=== PATIENT | female | born 1945 | race African-American/Black ===

== ENCOUNTER 2019-11-12 12:07 | Emergency (ER) | payer OTHER ==
--- NOTE | 2019-11-12 12:24 | PDOC ---
Rapid Medical Evaluation Time Seen by Provider: 11/12/19 12:22 Medical Evaluation: Allergies Allergy/AdvReac Type Severity Reaction Status Date / Time No Known Drug Allergies Allergy Verified 11/12/19 12:21 11/12/19 12:23 CC: chest tightness intermittently x months but worsening over the past week with palpitations, denies sob, leg swelling exam: vss, nsr Plan: labs, school lunch monitor Discharge Disposition - Diagnosis Palpitations - Referrals - Patient Instructions - Post Discharge Activity
[2019-11-12 12:26] VITALS: TEMP 98.3; BMI 32.5
--- NOTE | 2019-11-12 12:36 | PDOC ---
History of Present Illness - General Chief Complaint: Palpitations Stated Complaint: PALPITATIONS Time Seen by Provider: 11/12/19 12:22 History Source: Patient Exam Limitations: No Limitations - History of Present Illness Initial Comments: 11/12/19 12:36 74yF w PMHx iron deficiency anemia, obesity, GERD presenting w 4wk midsternal chest discomfort and palpitations exacerbated with bending over/standing up/after meals. Not exertional. Came in today because symptoms not relieved w omeprazole. Was worked up years ago for similar symptoms w neg workup. Denies smoking/fam cardiac hx. Denies fever, n/v, cough, SOB, ABD pain, urinary/bowel mvmt changes, leg swelling. Past History - Medical History Allergies/Adverse Reactions: Allergies Allergy/AdvReac Type Severity Reaction Status Date / Time No Known Drug Allergies Allergy Verified 11/12/19 12:21 Home Medications: Ambulatory Orders Omeprazole Magnesium [Prilosec (OTC)] 20 mg PO DAILY 02/20/12 Alfonzo/D3/Mag11/Zinc/Associate Director Of Development/Indra/Bor [Caltrate 600+D Plus Tablet] 1 each PO DAILY 09/16/14 Naproxen Sodium [Aleve] 440 mg PO BID PRN 09/16/14 Silodosin [Rapaflo] 4 mg PO DAILY 09/16/14 Oxycodone HCl/Acetaminophen [Percocet 5/325 -] 1 - 2 tab PO Q4H #30 tablet 09/18/14 Asthma: Yes COPD: No GI Disorders: Yes (ACID REFLUX) Other medical history: Osteo art, - Surgical History Orthopedic Surgery: Yes (RIGHT CTR,RIGHT TKR,LEFT ANKLE FUSION) - Psycho-Social/Smoking History Smoking Status: No Smoking History: Never smoked Have you smoked in the past 12 months: No Number of Cigarettes Smoked Daily: 0 - Substance Abuse Hx (Audit-C & DAST Scrn) How often the patient has a drink containing alcohol: Never Score: In Men: 4 or > Positive; In Women: 3 or > Positive: 0 Screen Result (Pos requires Nsg. Audit-10AR): Negative In the last yr the pt used illegal drug/Rx for NonMed reason: No Score: Yes response is considered Positive: 0 Screen Result (Positive result requires Nsg. DAST-10): Negative Review of Systems - Review of Systems Constitutional: No: Chills, Fever HEENTM: No: Eye Pain, Nose Congestion Respiratory: No: Cough, Shortness of Breath Cardiac (ROS): Yes: Palpitations. No: Chest Pain ABD/GI: No: Abdominal Distended, Constipated, Diarrhea, Nausea, Vomiting : No: Burning, Dysuria Musculoskeletal: No: Back Pain, Joint Pain Integumentary: No: Bruising, Flushing Neurological: No: Headache, Seizure Psychiatric: No: Anxiety, Depression Endocrine: No: Intolerance to Cold, Intolerance to Heat Hematologic/Lymphatic: No: Anemia, Blood Clots *Physical Exam - Vital Signs Last Vital Signs Temp Pulse Resp BP Pulse Ox 98.3 F 85 16 122/65 99 11/12/19 12:21 11/12/19 12:21 11/12/19 12:21 11/12/19 12:21 11/12/19 12:21 - Physical Exam General Appearance: Yes: Nourished, Appropriately Dressed. No: Apparent Distress HEENT: positive: EOMI, JULIÁN, Normal Voice. negative: Scleral Icterus (R), Scleral Icterus (L) Respiratory/Chest: positive: Lungs Clear, Normal Breath Sounds. negative: Chest Tender, Respiratory Distress, Crackles, Rales, Rhonchi, Stridor, Wheezing Cardiovascular: positive: Regular Rhythm, Regular Rate, S1, S2. negative: Edema, Murmur Gastrointestinal/Abdominal: positive: Normal Bowel Sounds, Flat, Soft. negative: Tender, Organomegaly Extremity: negative: Pedal Edema Integumentary: positive: Normal Color, Warm Neurologic: positive: Fully Oriented, Alert, Normal Mood/Affect, Normal Response, Responsive. negative: Confused, Disoriented Heart Score/ECG Review - History History: Slightly suspicious - Electrocardiogram EKG: Normal - Age Age: >/= 65 - Risk Factors Risk Factors Heart Score: No Hx Hypercholesterolemia, No Hx Hypertension, No Hx Diabetes, No Smoking History, No Positive family hx of cardiac disease, Yes Hx Obesity Based on the list above the patient has:: 1-2 risk factors - Troponin Troponin: </= normal limit - Score Heart Score - Total: 3 ED Treatment Course - LABORATORY CBC & Chemistry Diagram: 11/12/19 12:53 11/12/19 12:53 - RADIOLOGY Radiology Studies Ordered: Category Date Time Status CHEST PA & LAT [RAD] Stat Radiology 11/12/19 12:36 Ordered Medical Decision Making - Medical Decision Making 11/12/19 12:55 EKG - NSR, HR 85, QTc 447, no ST changes CXR - clear lung suh, normal cardiac size WBC 3.5 leukopenic baseline --- 74yF w PMHx iron deficiency anemia, obesity, GERD presenting w 4wk positional/meal-related midsternal chest discomfort and palpitations. Likely GERD. Low concern for ACS (few risk factors, neg trop, HEART 3) vs PNA (clear lungs) vs thyroid (wnl). WBC 3.5 leukopenic baseline Given pepcid, maalox, 1L NS w relief. DC w PCP f/u, cards referral Discharge - Discharge Information Problems reviewed: Yes Clinical Impression/Diagnosis: Palpitations GERD (gastroesophageal reflux disease) Qualifiers: Esophagitis presence: without esophagitis Qualified Code(s): K21.9 - Gastro- esophageal reflux disease without esophagitis Condition: Improved - Follow up/Referral Referrals: Elfego Navarro MD [Primary Care Provider] - Abraham Chaudhry MD [Staff Physician] - - Patient Discharge Instructions Patient Printed Discharge Instructions: DI for Gastroesophageal Reflux Disease (GERD) Additional Instructions: Your workup did not show anything concerning Take your home Prilosec every day until you see your doctor Please follow up with your primary care doctor appointment next Monday. Please see the referred heart Dr Chaudhry. - Post Discharge Activity
[2019-11-12] MEDS ORDERED: SODIUM CHLORIDE 0.9% 500 ML INFUS.BAG IV ONE (12:51)
[2019-11-12] MEDS ORDERED: FAMOTIDINE 20 MG/50 ML IVPB 20 MG/50 ML MG IVPB ONE (12:51)
[2019-11-12] MEDS ORDERED: MAG HYDROX/AL HYDROX/SIMETH -MYLANTA- ORAL SUSPENSION PO ONE (12:51)
[2019-11-12] MEDS ORDERED: MAG HYDROX/AL HYDROX/SIMETH 30 ML UNIT-DOSE CUP ONE (12:53)
[2019-11-12 13:09] LABS: EOS % 4.1 % (0-4.5); HEMATOCRIT 40.8 % (32.4-45.2); HEMOGLOBIN 12.8 GM/dL (10.7-15.3); LYMPH % 39.3 % (8-40); MCH 23.8 pg (25.7-33.7); MCHC 31.4 g/dl (32.0-36.0); MEAN CELL VOLUME 75.8 fl (80-96); MEAN PLT VOLUME 8.5 fl (7.5-11.1); MONO % 11.8 % (3.8-10.2); NEUT % 43.8 % (42.8-82.8); PLATELET COUNT 225 K/MM3 (134-434); RBC 5.39 M/mm3 (3.60-5.2); RDW 14.4 % (11.6-15.6); WHITE BLOOD COUNT 3.5 K/mm3 (4.0-10.0)
[2019-11-12 13:29] LABS: ALBUMIN 3.6 g/dl (3.4-5.0); ALK PHOS 98 U/L (45-117); ANION GAP 7 MMOL/L (8-16); BILIRUBIN,TOTAL 0.4 mg/dL (0.2-1); BLOOD UREA NITROGEN 12.5 mg/dL (7-18); CALCIUM 9.4 mg/dL (8.5-10.1); CHLORIDE 108 mmol/L (98-107); CO2 26 mmol/L (21-32); CREATININE 0.6 mg/dL (0.55-1.3); GLUCOSE,RANDOM 88 mg/dL (74-106); POTASSIUM 4.1 mmol/L (3.5-5.1); SGOT/AST 23 U/L (15-37); SGPT/ALT 27 U/L (13-61); SODIUM 141 mmol/L (136-145); TOT PROT 7.6 g/dl (6.4-8.2)
--- NOTE | 2019-11-12 14:04 | PDOC ---
Attending Attestation - Resident Resident Name: Juan Jose Raymond - ED Attending Attestation I have performed the following: I have examined & evaluated the patient, The case was reviewed & discussed with the resident, I agree w/resident's findings & plan - HPI HPI: 11/12/19 14:00 74y/o healthy F p/w fluttering sensation in her chest for the past week. no chest pain, no MAURICE, no f/c/cough. sxs occur randomly, last for seconds to minutes then resolve. Became more consistent over past 24h so presents for evaluation after speaking with Dr. Navarro. had holter many years ago, ? extra beats. - Physicial Exam PE: 11/12/19 14:01 vss well appearing and ambulatory in ED no jvd, no palpable neck mass s1s2 rrr without ectopy noted during exam ctab abd normal no calf ttp/edema - Medical Decision Making 11/12/19 14:02 74y/o F with palpitations intermittently for one week, no acs sxs of cp or sob. overall atypical cardiac presentation for acs, well appearing here with stable vital signs and no other red flags. ? ectopic beats, ? gerd labs wnl, including lytes and trop ekg normal sinus cxr clear check second trop otherwise, feels well. likely d/c plan to f/u with Dr. Navarro and cardiology 11/12/19 14:11 pt felt better and requested discharge. d/w dr. navarro, follow-up arranged. understands return criteria Heart Score/ECG Review #1 ECG reviewed & interpreted by me at: 12:11 General ECG Interpretation: Sinus Rhythm, Normal Rate (85), Normal Intervals (qtc 447), No acute ischemic changes Discharge - Discharge Information Problems reviewed: Yes Clinical Impression/Diagnosis: Palpitations GERD (gastroesophageal reflux disease) Qualifiers: Esophagitis presence: without esophagitis Qualified Code(s): K21.9 - Gastro- esophageal reflux disease without esophagitis Condition: Improved Disposition: HOME - Follow up/Referral Referrals: Elfego Navarro MD [Primary Care Provider] - Abraham Chaudhry MD [Staff Physician] - - Patient Discharge Instructions Patient Printed Discharge Instructions: DI for Gastroesophageal Reflux Disease (GERD) Additional Instructions: Your workup did not show anything concerning Take your home Prilosec every day until you see your doctor Please follow up with your primary care doctor appointment next Monday. Please see the referred heart Dr Chaudhry. - Post Discharge Activity
[2019-11-12 14:28] VITALS: BP 121/66; PULSE 79
--- NOTE | 2019-11-12 14:50 | EKG ---
Test Reason : Blood Pressure : / mmHG Vent. Rate : 085 BPM Atrial Rate : 085 BPM P-R Int : 140 ms QRS Dur : 082 ms QT Int : 376 ms P-R-T Axes : 070 062 044 degrees QTc Int : 447 ms NORMAL SINUS RHYTHM NORMAL ECG WHEN COMPARED WITH ECG OF 20-FEB-2012 08:57, NO SIGNIFICANT CHANGE WAS FOUND Confirmed by Curtis Singleton MD ([id number]) on 11/12/2019 2:50:16 PM Referred By: Confirmed By:Curtis Singleton MD
== END 2019-11-12 14:26 | disposition home or self-care (01) ==
LOC: JER 12:07
PROC: 3E033NZ Introduction of Analgesics, Hypnotics, Sedatives into Peripheral Vein, Percutaneous Approach (ICD-10-PCS; principal; 2019-11-12)
DX: R00.2 Palpitations (principal); K21.9 Gastro-esophageal reflux disease without esophagitis
CPT/HCPCS: 36415; 71046-TC-FY; 80053; 82550; 84443; 84484; 85025; 93005; 93010; 96365; 99285-25

== ENCOUNTER 2020-07-27 19:03 | Emergency (ER) | payer OTHER ==
[2020-07-27 19:26] VITALS: TEMP 98.3; BMI 30.4
[2020-07-27] MEDS ORDERED: LIDOCAINE PATCH REMOVAL MC SCH (22:00)
[2020-07-27] MEDS ORDERED: DEXAMETHASONE SOD PHOSPHATE 10 MG/1 ML VIAL IM ONE (22:29)
[2020-07-27] MEDS ORDERED: ACETAMINOPHEN 325 MG TABLET (FP) PO ONE (22:29)
[2020-07-27] MEDS ORDERED: LIDOCAINE 5% TOPICAL PATCH TP ONE (22:29)
[2020-07-27] MEDS ORDERED: ACETAMINOPHEN 325 MG TABLET (FP) ONE (22:46)
[2020-07-27] MEDS ORDERED: DEXAMETHASONE SOD PHOSPHATE 10 MG/1 ML VIAL ONE (22:46)
[2020-07-27] MEDS ORDERED: LIDOCAINE 5% TOPICAL PATCH ONE (22:47)
[2020-07-27 23:29] VITALS: BP 132/52; PULSE 75
== END 2020-07-28 00:20 | disposition home or self-care (01) ==
LOC: JER 19:03
PROC: 3E0233Z Introduction of Anti-inflammatory into Muscle, Percutaneous Approach (ICD-10-PCS; principal; 2020-07-27)
DX: M25.571 Pain in right ankle and joints of right foot (principal)
CPT/HCPCS: 73610-TC-RT-FY; 73630-TC-RT-FY; 93971-TC; 99284-25; J1100

== ENCOUNTER 2022-03-14 08:08 | Day surgery (SDC) | payer OTHER ==
[2022-03-08 15:29] VITALS: BMI 30.9
[~2022-03-14 08:08] MED LIST: TRANEXAMIC ACID 1000 MG/10 ML VIAL IVPUSH ONE
[2022-03-14] MEDS ORDERED: SUCCINYLCHOLINE CHLORIDE 200 MG/10 ML SYRINGE ONE (09:06)
[2022-03-14] MEDS ORDERED: MIDAZOLAM HCL 2 MG/2 ML SINGLE DOSE VIAL ONE ×2 (09:06→12:47)
[2022-03-14] MEDS ORDERED: PROPOFOL 40 ML ONE (09:06)
[2022-03-14] MEDS ORDERED: CEFAZOLIN 2 GM in DEXTROSE 5%-WATER - 50 ML IVPB ONE (09:30)
[2022-03-14] MEDS ORDERED: BUPIVACAINE LIPOSOME/PF (EXPAREL) 266 MG/20 ML VIAL ONE (12:47)
[2022-03-14] MEDS ORDERED: BUPIVACAINE HCL 50 ML ONE (12:48)
[2022-03-14] MEDS ORDERED: SODIUM CHLORIDE 0.9% P/F 10 ML VIAL IJ ONE (12:48)
[2022-03-14] MEDS ORDERED: ROCURONIUM BROMIDE 50 MG/5 ML SYRINGE ONE (13:26)
[2022-03-14] MEDS ORDERED: VANCOMYCIN 1,000 MG VIAL (RESTRICTED TO ID ONLY) ONE ×2 (13:33→13:40)
[2022-03-14] MEDS ORDERED: ceFAZolin SODIUM 1 GM VIAL ONE (13:37)
[2022-03-14] MEDS ORDERED: TRANEXAMIC ACID 1000 MG/10 ML VIAL ONE ×2 (13:37→15:29)
[2022-03-14] MEDS ORDERED: ONDANSETRON 4 MG/2 ML VIAL ONE (15:17)
[2022-03-14] MEDS ORDERED: NEOSTIGMINE METHYLSULFATE 0.5 MG/1 ML - 10 ML MDV ONE (15:21)
[2022-03-14] MEDS ORDERED: GLYCOPYRROLATE 0.2 MG/1 ML VIAL ONE (15:21)
[2022-03-14] MEDS ORDERED: BUPIVICAINE 0.25%/MORPH PF/KETOROLAC - 51ML DISP.SYRINGE IA ONE (15:26)
[2022-03-14] MEDS ORDERED: ACETAMINOPHEN INJECTION 100 ML IVPB ONE (15:42)
[2022-03-14] MEDS ORDERED: LIDOCAINE HCL/PF 2% SDV 5ML VIAL ONE (15:49)
[2022-03-14] MEDS ORDERED: PROPOFOL 20 ML ONE (16:03)
[2022-03-14] MEDS ORDERED: MAG HYDROX/AL HYDROX/SIMETH 30 ML UNIT-DOSE CUP PO PRN (16:24)
[2022-03-14] MEDS ORDERED: ONDANSETRON 4 MG/2 ML VIAL IVPUSH PRN ×2 (16:24→16:43)
[2022-03-14] MEDS ORDERED: ACETAMINOPHEN 1000 MG/100 ML BAG IVPB PRN (16:29)
[2022-03-14] MEDS ORDERED: LACTATED RINGERS SOLUTION 1,000 ML IV SCH ×2 (16:30→16:45)
[2022-03-14] MEDS ORDERED: oxyCODONE HCL 5 MG TABLET PO PRN ×3 (16:30→16:43)
[2022-03-14] MEDS ORDERED: PROMETHAZINE HCL 25 MG/1 ML VIAL IVPUSH PRN (16:43)
[2022-03-14] MEDS ORDERED: ACETAMINOPHEN 1000 MG/100 ML BAG IVPB ONE (16:43)
[2022-03-14] MEDS ORDERED: FENTANYL CITRATE/PF 50 MCG/ML VIAL ONE ×3 (16:46→17:07)
[2022-03-14] MEDS: KETOROLAC TROMETHAMINE 30 MG/1 ML VIAL IVPUSH SCH ×2 (19:04→23:36)
[2022-03-14] MEDS: ACETAMINOPHEN 500 MG TABLET (FP) PO SCH (22:00)
[2022-03-14] MEDS: GABAPENTIN 300 MG CAPSULE PO SCH (22:06)
[2022-03-14] MEDS: SENNOSIDES/DOCUSATE COMBO (SENNA PLUS) TABLET (UD) PO SCH (22:06)
[2022-03-14] MEDS: CEFAZOLIN SODIUM 2 GM in DEXTROSE 5%-WATER 100 ML IVPB SCH (22:07)
[2022-03-14] MEDS: oxyCODONE HCL 10 MG SUSTAINED ACTING TABLET PO SCH (22:07)
[2022-03-14] MEDS: METOPROLOL TARTRATE 25 MG TABLET (FP) PO SCH (23:38)
[2022-03-15] MEDS ORDERED: ACETAMINOPHEN INJECTION 100 ML IVPB ONE (00:36)
[2022-03-15] MEDS: ACETAMINOPHEN 500 MG TABLET (FP) PO SCH ×3 (04:00→15:33)
[2022-03-15] MEDS: CEFAZOLIN SODIUM 2 GM in DEXTROSE 5%-WATER 100 ML IVPB SCH ×2 (06:16→14:27)
[2022-03-15 08:26] LABS: HEMATOCRIT 28.3 % (32.4-45.2); HEMOGLOBIN 9.3 G/dL (10.7-15.3); MCH 24.6 pg (25.7-33.7); MCHC 32.8 g/dl (32.0-36.0); MEAN CELL VOLUME 74.9 fl (80-96); MEAN PLT VOLUME 9.5 fl (7.5-11.1); PLATELET COUNT 225.7 10^3/uL (134-434); RBC 3.78 10^6/uL (3.60-5.2); RDW 17.1 % (11.6-15.6); WHITE BLOOD COUNT 5.8 10^3/uL (4.0-10.8)
[2022-03-15 08:27] LABS: CALCIUM 8.3 mg/dl (8.5-10); CREATININE 0.6 mg/dl (0.55-1.3)
[2022-03-15] MEDS: GABAPENTIN 300 MG CAPSULE PO SCH (09:30)
[2022-03-15] MEDS: METOPROLOL TARTRATE 25 MG TABLET (FP) PO SCH (09:33)
[2022-03-15] MEDS: SENNOSIDES/DOCUSATE COMBO (SENNA PLUS) TABLET (UD) PO SCH (09:34)
[2022-03-15] MEDS: oxyCODONE HCL 10 MG SUSTAINED ACTING TABLET PO SCH (09:34)
[2022-03-15] MEDS ORDERED: SILODOSIN 4 MG PO SCH ×2 (10:00→16:45)
[2022-03-15] MEDS ORDERED: FOLIC ACID 1 MG TABLET (FP) PO SCH (10:00)
[2022-03-15] MEDS ORDERED: APIXABAN 2.5 MG TABLET PO SCH (10:00)
[2022-03-15] MEDS ORDERED: PANTOPRAZOLE 40 MG TABLET PO SCH (10:00)
[2022-03-15 14:02] VITALS: BP 107/70; PULSE 69; RESP 16; TEMP 98.2
[2022-03-16] MEDS ORDERED: APIXABAN 5 MG TABLET PO SCH (10:00)
== END 2022-03-15 16:40 | disposition home health service (06) ==
LOC: SUATTDRO 08:08 → FASUSAT 08:08 → FM/S 08:09 → UNDOADMIN 08:09 → FM/S 18:03 → UNDODISIN 03-15 16:40 → FASUSAT 03-15 16:40
PROC: 8E0Y0CZ Robotic Assisted Procedure of Lower Extremity, Open Approach (ICD-10-PCS; 2022-03-14)
PROC: 0SRD0J9 Replacement of Left Knee Joint with Synthetic Substitute, Cemented, Open Approach (ICD-10-PCS; principal; 2022-03-14 14:00)
DX: M17.12 Unilateral primary osteoarthritis, left knee (principal); I10 Essential (primary) hypertension; I48.91 Unspecified atrial fibrillation; D50.9 Iron deficiency anemia, unspecified; Z79.01 Long term (current) use of anticoagulants; E66.9 Obesity, unspecified; Z68.30 Body mass index [BMI] 30.0-30.9, adult
CPT/HCPCS: 20985; 27447; C1776; S2900; 36415; 73560-TC-LT-FY; 80048; 82728; 83540; 83550; 85027; 88305-TC; 88311-TC; 94760; 97010-GP; 97116-GP; 97162-GP; C1889

== ENCOUNTER 2024-02-16 04:04 | Day surgery (SDC) | payer OTHER ==
[2024-02-14 10:49] VITALS: BMI 31.2
[2024-02-16 06:21] VITALS: RESP 16
[2024-02-16] MEDS ORDERED: BUPIVACAINE HCL/PF 0.75% 10 ML VIAL ONE (07:18)
[2024-02-16] MEDS ORDERED: LIDOCAINE HCL/PF 1% SDV 5ML VIAL ONE (07:19)
[2024-02-16] MEDS: BUPIVACAINE HCL/PF 0.75% 10 ML VIAL NR ONE ×2 (08:27)
[2024-02-16] MEDS: LIDOCAINE HCL 1% PRESERVATIVE FREE - 30ML VIAL IJ ONE ×2 (08:27)
[2024-02-16 08:49] VITALS: BP 124/46; PULSE 60; TEMP 97.6
[2024-02-16] MEDS ORDERED: ACETAMINOPHEN 500 MG TABLET (FP) PO PRN (11:35)
== END 2024-02-16 10:02 | disposition home or self-care (01) ==
LOC: MERGE 04:04 → JASU-SURG 04:04
PROVIDERS: ATTEND Pain Medicine Pain Medicine
PROC: 3E0T3BZ Introduction of Anesthetic Agent into Peripheral Nerves and Plexi, Percutaneous Approach (ICD-10-PCS; principal; 2024-02-16 08:00)
DX: M47.816 Spondylosis without myelopathy or radiculopathy, lumbar region (principal)
CPT/HCPCS: 76000-TC-FY

== ENCOUNTER 2024-12-05 06:15 | Day surgery (SDC) | payer OTHER ==
[2024-12-03 12:53] VITALS: BMI 31.4
[2024-12-05] MEDS ORDERED: LIDOCAINE HCL/PF 1% SDV 5ML VIAL ONE (07:17)
[2024-12-05] MEDS ORDERED: TRIAMCINOLONE ACET 40MG/1ML VIAL ONE (07:17)
[2024-12-05] MEDS ORDERED: BUPIVACAINE HCL/PF 0.5% (5MG/ML) 10 ML VIAL ONE (07:17)
[2024-12-05] MEDS ORDERED: ACETAMINOPHEN 500 MG TABLET (FP) PO PRN (08:58)
[2024-12-05] MEDS: LIDOCAINE HCL 1% PRESERVATIVE FREE - 30ML VIAL IJ ONE ×2 (09:30)
[2024-12-05] MEDS: BUPIVACAINE HCL/PF 0.5% (5 MG/ML) 30 ML VIAL IJ ONE ×3 (09:30)
[2024-12-05] MEDS: TRIAMCINOLONE ACET 40MG/1ML VIAL IM ONE ×2 (09:30)
[2024-12-05] MEDS: IOHEXOL 180 MG/1 ML ML IJ ONE ×3 (09:30)
[2024-12-05 13:25] VITALS: BP 113/67; PULSE 56; RESP 18; TEMP 98
== END 2024-12-05 10:04 | disposition home or self-care (01) ==
LOC: JASU-SURG 06:15
PROVIDERS: ATTEND Pain Medicine Pain Medicine
PROC: 3E0U3BZ Introduction of Anesthetic Agent into Joints, Percutaneous Approach (ICD-10-PCS; 2024-12-05)
PROC: 3E0U33Z Introduction of Anti-inflammatory into Joints, Percutaneous Approach (ICD-10-PCS; principal; 2024-12-05 09:00)
DX: M53.3 Sacrococcygeal disorders, not elsewhere classified (principal)
CPT/HCPCS: 76000-TC-FY

== ENCOUNTER 2025-01-10 06:16 | Day surgery (SDC) | payer OTHER ==
[2025-01-08 12:05] VITALS: BMI 31.6
[2025-01-10] MEDS ORDERED: BUPIVACAINE HCL/PF 0.25% (2.5MG/ML) 10 ML VIAL ONE (07:36)
[2025-01-10] MEDS ORDERED: TRIAMCINOLONE ACET 40MG/1ML VIAL ONE (07:37)
[2025-01-10] MEDS ORDERED: LIDOCAINE HCL/PF 1% SDV 5ML VIAL ONE (07:37)
[2025-01-10] MEDS ORDERED: BUPIVACAINE HCL/PF 0.5% (5MG/ML) 10 ML VIAL ONE (07:37)
[2025-01-10 09:31] VITALS: RESP 18
[2025-01-10] MEDS: LIDOCAINE 1% P/F 10 MG/ML VIAL INF ONE ×2 (12:35)
[2025-01-10] MEDS: IOHEXOL 180 MG/1 ML ML IJ ONE ×2 (12:36)
[2025-01-10] MEDS: BUPIVACAINE HCL/PF 0.5% (5MG/ML) 10 ML VIAL IJ ONE ×2 (12:37)
[2025-01-10] MEDS: TRIAMCINOLONE ACETONIDE 40 MG/ML 10 ML VIAL IJ ONE ×2 (12:38)
[2025-01-10 12:49] VITALS: BP 126/54; PULSE 56; TEMP 97.3
== END 2025-01-10 13:25 | disposition home or self-care (01) ==
LOC: JASU-SURG 06:16
PROVIDERS: ATTEND Pain Medicine Pain Medicine
PROC: 3E0U3BZ Introduction of Anesthetic Agent into Joints, Percutaneous Approach (ICD-10-PCS; 2025-01-10)
PROC: 3E0U33Z Introduction of Anti-inflammatory into Joints, Percutaneous Approach (ICD-10-PCS; principal; 2025-01-10 11:00)
DX: M16.12 Unilateral primary osteoarthritis, left hip (principal)
CPT/HCPCS: 76000-TC-FY